=== PATIENT | male | born 1975 | race Native Hawaiian/Other Pacific Islander ===

== ENCOUNTER 2022-06-12 10:07 | Outpatient (CLI) | payer BC ==
[2022-06-12 10:36] LABS: PLATELET COUNT 216 K/uL (142-355)
[2022-06-12 10:40] LABS: POTASSIUM 3.5 mmol/L (3.6-5.2); SODIUM 139 mmol/L (136-145)
== END 2022-06-12 19:00 | disposition home or self-care (01) ==
LOC: LABW 10:07
PROVIDERS: ATTEND Nurse Practitioner Family
DX: Z95.5 Presence of coronary angioplasty implant and graft (principal)
CPT/HCPCS: 36415; 80053; 82550; 82553; 83880; 84484; 85027

== ENCOUNTER 2023-01-16 10:36 | Outpatient (CLI) | payer BC | END 2023-01-16 17:00 | disposition home or self-care (01) | LOC: US 10:36 | PROVIDERS: ATTEND Nurse Practitioner Family | DX: E05.90 Thyrotoxicosis, unspecified without thyrotoxic crisis or storm (principal) ==

== ENCOUNTER 2023-05-10 22:13 | Emergency (ER) | payer BC ==
[~2023-05-10] VITALS: Ht 172.7 cm; Wt 69.9 kg
== END 2023-05-11 00:30 | disposition home or self-care (01) ==
LOC: ED 22:13
DX: M54.9 Dorsalgia, unspecified (principal); M54.30 Sciatica, unspecified side; F17.210 Nicotine dependence, cigarettes, uncomplicated
CPT/HCPCS: 96372; 99283; J1885; J2360